=== PATIENT | female | born 1955 | race American Indian/Alaskan Native ===

== ENCOUNTER 2021-09-13 22:27 | Emergency (ER) | payer OTHER ==
[2021-09-13 23:53] LABS: PTT,PARTIAL THROMBOPLSTIN TIME 30.3 SEC (22.0-34.0)
[2021-09-14 00:06] LABS: ANION GAP 18.6 mEq/L (7-13)
== END 2021-09-14 01:40 | disposition home or self-care (01) ==
LOC: EDBD → DL.ED 22:27
DX: S02.2XXA Fracture of nasal bones, initial encounter for closed fracture (principal); K80.70 Calculus of gallbladder and bile duct without cholecystitis without obstruction; F10.920 Alcohol use, unspecified with intoxication, uncomplicated; D25.9 Leiomyoma of uterus, unspecified; F17.210 Nicotine dependence, cigarettes, uncomplicated; Z86.16 Personal history of COVID-19; W08.XXXA Fall from other furniture, initial encounter
CPT/HCPCS: 36415; 70450; 71250; 72125; 72192; 80053; 80307; 85025; 85610; 85730; 99284

== ENCOUNTER 2023-03-05 14:11 | Inpatient (IN) | payer MEDICARE, MEDICAID ==
[2023-03-05] MEDS ORDERED: Lactated Ringers 1,000 ML IV ONE (14:37)
[2023-03-05] MEDS ORDERED: Thiamine 500 MG in Sodium Chloride 0.9% 100 ML IV ONE (14:37)
[2023-03-05] MEDS ORDERED: Ciprofloxacin 0.3% Ophth Soln 5 ML Bottle EYEBOTH ONE (15:02)
[2023-03-05 15:05] LABS: BASOPHILS PERCENT AUTO 0.3 % (0.0-1.0); EOSINOPHILS PERCENT AUTO 0.1 % (1.0-3.0); HEMATOCRIT 32.5 % (37.0-47.0); LYMPHOCYTES PERCENT AUTO 10.7 % (20.5-50.1); MEAN CORPUSCULAR HEMOGLOBIN 33.1 pg (27.0-34.0); MEAN CORPUSCULAR HGB CONC 33.8 g/dL (33.0-35.0); MEAN CORPUSCULAR VOLUME 97.9 fL (80-100); NEUTROPHILS PERCENT AUTO 80.9 % (42.2-75.2); PLATELET COUNT,PLT 98 10^3/uL (150-450); RED BLOOD CELL COUNT 3.32 10^6/uL (4.2-5.4); WHITE BLOOD CELL COUNT,WBC 7.1 10^3/uL (5.0-10.0)
[2023-03-05 15:39] LABS: ALANINE AMINOTRANSFERASE,ALT 32 U/L (14-59); ALBUMIN 2.6 g/dL (3.4-5.0); ALKALINE PHOSPHATASE 182 U/L (46-116); ANION GAP 17.3 mEq/L (7-13); ASPARTATE AMNIOTRANSFERASE,AST 60 U/L (15-37); BILIRUBIN TOTAL 7.4 mg/dL (0.2-1.0); BLOOD UREA NITROGEN,BUN 8 mg/dL (7-18); BUN/CREATININE RATIO 11.3 (No establ ref range); CALCIUM 8.4 mg/dL (8.5-10.1); CARBON DIOXIDE,CO2 23 mmol/L (21-32); CHLORIDE,CL 104 mmol/L (98-107); CREATININE 0.71 mg/dL (0.55-1.02); GLUCOSE RANDOM 100 mg/dL (70-99); LIPASE 15 U/L (16-77); MAGNESIUM 1.3 mg/dL (1.8-2.4); POTASSIUM,K 3.3 mmol/L (3.5-5.1); PROTEIN TOTAL,TP 7.2 g/dL (6.4-8.2); SODIUM,NA 141 mmol/L (136-145)
[2023-03-05 15:43] LABS: APPEARANCE,URINE CLEAR (CLEAR); BILIRUBIN,URINE NEGATIVE (NEGATIVE); COLOR,URINE YELLOW (YELLOW); GLUCOSE,URINE NEGATIVE (NEGATIVE); KETONES,URINE NEGATIVE (NEGATIVE); LEUKOCYTE ESTERASE,URINE NEGATIVE (NEGATIVE); NITRITE,URINE NEGATIVE (NEGATIVE); OCCULT BLOOD,URINE NEGATIVE (NEGATIVE); PROTEIN,URINE NEGATIVE (NEGATIVE)
[2023-03-05 15:47] LABS: AMPHETAMINES,URINE NEGATIVE (NEGATIVE); BARBITURATES,URINE NEGATIVE (NEGATIVE); BENZODIAZEPINE,URINE NEGATIVE (NEGATIVE); MDMA (ECSTASY), URINE NEGATIVE (NEGATIVE); METHADONE,URINE NEGATIVE (NEGATIVE); METHAMPHETAMINES,URINE NEGATIVE (NEGATIVE); OPIATES,URINE NEGATIVE (NEGATIVE); OXYCODONE,URINE NEGATIVE (NEGATIVE); PHENCYCLIDINE,URINE NEGATIVE (NEGATIVE); TCA,URINE NEGATIVE (NEGATIVE)
[2023-03-05 15:50] LABS: A/G RATIO 0.57; ESTIMATED GFR 94 mL/min (>=60); ETHANOL BLOOD MEDICAL < 3 mg/dL (0)
[2023-03-05] MEDS ORDERED: Magnesium Sulfate/Water 2 GM in Premix Bag 1 BAG IV ONE (15:52)
[2023-03-05] MEDS ORDERED: Lactulose Soln 10 GM/15 ML 30 ML UD Cup PO ONE (16:02)
[2023-03-05 16:17] LABS: INR 1.5 (0.9-1.2); PROTHROMBIN TIME 15.5 SEC (9.0-12.0)
[2023-03-05] MEDS ORDERED: Magnesium Hydroxide 400 MG/5 ML Susp 30 ML Cup PO PRN (20:22)
[2023-03-05] MEDS ORDERED: Acetaminophen 325 MG Tab PO PRN (20:22)
[2023-03-05] MEDS ORDERED: Polyethylene Glycol 3350 Powder 17 GM Packet PO PRN (20:22)
[2023-03-05] MEDS ORDERED: Sodium Chloride 0.9% 10 ML Syringe FLUSH PRN (20:22)
[2023-03-05] MEDS ORDERED: Albuterol/Ipratropium 3.0-0.5 MG/3 ML Neb Soln NEB PRN (20:22)
[2023-03-05] MEDS ORDERED: Ondansetron 4 MG/2 ML SDV IVPUSH PRN (20:22)
[2023-03-05] MEDS ORDERED: Sennosides/Docusate Sodium 50-8.6 MG Tab PO PRN (20:22)
[2023-03-05] MEDS ORDERED: Ketorolac 30 MG/ML SDV IVPUSH PRN (20:22)
[2023-03-05] MEDS ORDERED: Potassium Chloride 10 MEQ in Premix Bag 1 BAG IV ONE (20:29)
[2023-03-05] MEDS ORDERED: LORazepam 2 MG/ML SDV IV PRN (20:30)
[2023-03-05] MEDS ORDERED: LORazepam 0.5 MG Tab PO PRN (20:30)
[2023-03-05] MEDS ORDERED: Haloperidol Lactate 5 MG/ML SDV IM PRN (20:30)
[2023-03-05] MEDS ORDERED: MVI, Adult with Vitamin K 10 ML, Folic Acid 1 MG, Thiamine 100 MG in Lactated Ringers 1... IV ONE ×4 (20:35)
[2023-03-05] MEDS ORDERED: Metoprolol Tartrate 5 MG/5 ML SDV IVPUSH PRN (20:40)
[2023-03-05] MEDS ORDERED: hydrALAZINE 20 MG/ML SDV IVPUSH PRN (20:40)
[2023-03-05] MEDS ORDERED: Phytonadione 10 MG in Sodium Chloride 0.9% 50 ML IV ONE (20:41)
[2023-03-05] MEDS ORDERED: Potassium Chloride 20 MEQ in Premix Bag 1 BAG IV ONE (22:00)
[2023-03-05] MEDS: Sodium Chloride 0.9% 10 ML Syringe FLUSH SCH (22:33)
[2023-03-06] MEDS ORDERED: Sodium Chloride 0.9% 1,000 ML IV SCH (06:00)
[2023-03-06] MEDS: Pantoprazole 40 MG Tab.CR PO SCH (06:18)
[2023-03-06 06:36] LABS: BASOPHILS PERCENT AUTO 0.1 % (0.0-1.0); MEAN CORPUSCULAR HEMOGLOBIN 33.4 pg (27.0-34.0); MEAN CORPUSCULAR HGB CONC 34.4 g/dL (33.0-35.0); MEAN CORPUSCULAR VOLUME 97.3 fL (80-100); MONOCYTES PERCENT AUTO 5.3 % (2-8); NEUTROPHILS PERCENT AUTO 90.6 % (42.2-75.2); PLATELET COUNT,PLT 88 10^3/uL (150-450); RED BLOOD CELL COUNT 3.29 10^6/uL (4.2-5.4); WHITE BLOOD CELL COUNT,WBC 10.3 10^3/uL (5.0-10.0)
[2023-03-06 07:11] LABS: A/G RATIO 0.55; ALBUMIN 2.4 g/dL (3.4-5.0); ANION GAP 18.1 mEq/L (7-13); BILIRUBIN TOTAL 7.3 mg/dL (0.2-1.0); C-REACTIVE PROTEIN 2.9 ng/dL (<=0.50); CALCIUM 7.8 mg/dL (8.5-10.1); CREATININE 0.73 mg/dL (0.55-1.02); EST CRCL DRUG DOSING (CG) 55.19 mL/min; MAGNESIUM 1.5 mg/dL (1.8-2.4); POTASSIUM,K 3.1 mmol/L (3.5-5.1); PROTEIN TOTAL,TP 6.8 g/dL (6.4-8.2)
[2023-03-06] MEDS ORDERED: Potassium Chloride 20 MEQ in Premix Bag 1 BAG IV ONE ×2 (08:24→15:00)
[2023-03-06] MEDS ORDERED: Magnesium Sulfate/Water 2 GM in Premix Bag 1 BAG IV ONE ×2 (08:24→13:00)
[2023-03-06] MEDS: Multivitamin Tab PO SCH (08:26)
[2023-03-06] MEDS: Folic Acid 1 MG Tab PO SCH (08:26)
[2023-03-06] MEDS: Phytonadione 5 MG Tab PO SCH (08:26)
[2023-03-06] MEDS: Thiamine 100 MG Tab PO SCH (08:26)
[2023-03-06] MEDS: Sodium Chloride 0.9% 10 ML Syringe FLUSH SCH ×2 (09:26→22:19)
[2023-03-06] MEDS: Piperacillin/Tazobactam 4.5 GM in Sodium Chloride 0.9% 100 ML IV SCH ×3 (09:27→22:21)
[2023-03-06] MEDS: Dexamethasone 4 MG/ML SDV IVPUSH SCH (09:29)
[2023-03-07] MEDS: Piperacillin/Tazobactam 4.5 GM in Sodium Chloride 0.9% 100 ML IV SCH (03:11)
[2023-03-07] MEDS: Pantoprazole 40 MG Tab.CR PO SCH (05:58)
[2023-03-07 07:00] LABS: HEMATOCRIT 28.2 % (37.0-47.0); HEMOGLOBIN 9.6 g/dL (12.0-16.0); MEAN CORPUSCULAR HEMOGLOBIN 33.6 pg (27.0-34.0); MEAN CORPUSCULAR VOLUME 98.6 fL (80-100); PLATELET COUNT,PLT 80 10^3/uL (150-450); RED BLOOD CELL COUNT 2.86 10^6/uL (4.2-5.4); WHITE BLOOD CELL COUNT,WBC 7.1 10^3/uL (5.0-10.0)
[2023-03-07 07:14] LABS: LYMPHOCYTES PERCENT AUTO 10.9 % (20.5-50.1); MONOCYTES PERCENT AUTO 14.1 % (2-8)
[2023-03-07 07:27] LABS: A/G RATIO 0.51; ANION GAP 17.4 mEq/L (7-13); BUN/CREATININE RATIO 17.7 (No establ ref range); C-REACTIVE PROTEIN 4.06 ng/dL (<=0.50); CALCIUM 7.7 mg/dL (8.5-10.1); CREATININE 0.62 mg/dL (0.55-1.02); EST CRCL DRUG DOSING (CG) 64.98 mL/min; MAGNESIUM 1.7 mg/dL (1.8-2.4); POTASSIUM,K 3.4 mmol/L (3.5-5.1); PROTEIN TOTAL,TP 5.9 g/dL (6.4-8.2)
[2023-03-07] MEDS: Folic Acid 1 MG Tab PO SCH (08:44)
[2023-03-07] MEDS: Multivitamin Tab PO SCH (08:44)
[2023-03-07] MEDS: Phytonadione 5 MG Tab PO SCH (08:44)
[2023-03-07] MEDS: Thiamine 100 MG Tab PO SCH (08:44)
[2023-03-07] MEDS: Dexamethasone 4 MG/ML SDV IVPUSH SCH (08:45)
[2023-03-07] MEDS: Sodium Chloride 0.9% 10 ML Syringe FLUSH SCH (08:58)
[2023-03-07] MEDS ORDERED: Piperacillin/Tazobactam 4.5 GM in Sodium Chloride 0.9% 100 ML IV SCH (09:00)
[2023-03-07] MEDS ORDERED: Potassium Chloride 10 MEQ Tab.ER PO ONE (09:24)
[2023-03-07 09:39] LABS: BAND PERCENT MAN 2 %; LYMPHOCYTES PERCENT MAN 12 % (20-50); MONOCYTES PERCENT MAN 8 % (2-8); SEG NEUTROPHILS PERCENT MAN 78 % (42-75)
[2023-03-07 10:46] LABS: C.TRACHOMATIS BY TMA Negative (Negative); N.GONORRHOEAE BY TMA Negative (Negative); SOURCE URINE
== END 2023-03-07 14:05 | DRG 441 ==
LOC: DL.ED 14:11 → DL.MS 19:17
PROVIDERS: ADMIT Internal Medicine; ATTEND Internal Medicine
DX: K76.82 Hepatic encephalopathy (principal); G93.41 Metabolic encephalopathy; D68.9 Coagulation defect, unspecified; E72.20 Disorder of urea cycle metabolism, unspecified; E46 Unspecified protein-calorie malnutrition; Z68.1 Body mass index [BMI] 19.9 or less, adult; F10.20 Alcohol dependence, uncomplicated; D50.9 Iron deficiency anemia, unspecified; R00.0 Tachycardia, unspecified; D69.6 Thrombocytopenia, unspecified; E87.6 Hypokalemia; R73.9 Hyperglycemia, unspecified; E83.42 Hypomagnesemia; E80.6 Other disorders of bilirubin metabolism; R74.8 Abnormal levels of other serum enzymes; E88.09 Other disorders of plasma-protein metabolism, not elsewhere classified; R79.89 Other specified abnormal findings of blood chemistry; K76.0 Fatty (change of) liver, not elsewhere classified; K59.00 Constipation, unspecified; K80.20 Calculus of gallbladder without cholecystitis without obstruction; Z86.16 Personal history of COVID-19
CPT/HCPCS: 36415; 51701; 70450; 80053; 80305; 80307; 81003; 82140; 83690; 83735; 85025; 85610; 87491; 87591; 96365; 96366; 96367; 99285 ×2; A9270 ×2; C1758; J3411; J3475; J3490; J7120; 70551; 71045; 74176; 74181; 80202; 86140; 94762; J1100; J1630; J1885; J2543; J3370; J3430; J3480; J7030; J7050